=== PATIENT | male | born 1975 | race Caucasian/White ===

== ENCOUNTER 2021-01-25 10:05 | Day surgery (SDC) | payer MEDICAID ==
[2021-01-24 15:15] LABS: COVID AG,FIA SOURCE NASOPHARYNGEAL
[~2021-01-25] VITALS: Ht 188 cm; Wt 109.5 kg
[~2021-01-25 10:05] MED LIST: SODIUM CHLORIDE 0.9% 1,000 ML IV ONE
[2021-01-25] MEDS ORDERED: LIDOCAINE/PF 2% 5 ML VIAL IM ONE (10:06)
[2021-01-25] MEDS ORDERED: PROPOFOL 1% 20 ML VIAL IVP ONE (10:06)
[2021-01-25] MEDS ORDERED: SODIUM CHLORIDE 0.9% 1,000 ML ONE (10:39)
== END 2021-01-26 14:15 | disposition home or self-care (01) ==
LOC: SURGERY 10:05
PROVIDERS: ATTEND Internal Medicine Gastroenterology
DX: K59.00 Constipation, unspecified (principal); K64.8 Other hemorrhoids; Z80.0 Family history of malignant neoplasm of digestive organs; Z79.899 Other long term (current) drug therapy; Z98.890 Other specified postprocedural states
CPT/HCPCS: 45378; 87426; C9803; J2704; J3490; J7030